=== PATIENT | female | born 1955 | race Caucasian/White ===

== ENCOUNTER → 2018-03-02 | Outpatient (CLI) | payer OTHER ==
--- NOTE | 2018-03-03 09:31 | XR ---
Left shoulder HISTORY: Pain 3 views of the left shoulder No comparisons Bone mineralization, joint spaces and alignment are maintained. Left lung apex as visualized is wallace l. No fracture or dislocation. IMPRESSION: Unremarkable left shoulder.
== END ==
LOC: RADXRYALE 15:38
PROVIDERS: ATTEND Internal Medicine
DX: M25.512 Pain in left shoulder (principal)

== ENCOUNTER 2018-03-07 05:04 | Emergency (ER) | payer OTHER ==
[2018-03-07 05:19] VITALS: TEMP 98
[2018-03-07] MEDS ORDERED: SODIUM CHLORIDE 0.9% 1,000 ML IV STA (05:29)
[2018-03-07] MEDS ORDERED: KETOROLAC 30 MG/ML 1 ML VIAL IVP STA (05:29)
[2018-03-07] MEDS ORDERED: ONDANSETRON 4 MG/2 ML VIAL IVP STA (05:29)
--- NOTE | 2018-03-07 05:31 | ED ---
General Adult HPI - General Chief complaint: Abdominal Pain Stated complaint: Flank Pain Time Seen by Provider: 03/07/18 05:15 Source: patient, RN notes reviewed Mode of arrival: ambulatory Limitations: no limitations - History of Present Illness Initial comments: This is a 62-year-old female who presents emergency Department complaining of left flank pain. Patient states it starts in her back radiates to the flank. Patient states she also very nauseated. Patient denies any abdominal pain. Patient denies any vomiting or diarrhea. Patient denies any history of kidney stones. Patient denies any hematuria or dysuria or urinary frequency. Patient denies any chest pain difficulty breathing shortest breath. Patient denies any recent fever chills or cough. Patient denies any injury trauma or new exercises or any heavy lifting lately. Patient states movement does not seem to increase the pain. - Related Data Previous Rx's Medication Instructions Recorded Hydrocodone/Acetaminophen [[place] 1 each PO Q4HR PRN #14 tab 03/07/18 5-325] Ketorolac [Toradol] 10 mg PO Q6HR #15 tab 03/07/18 Sulfamethox-Tmp 800-160Mg [Bactrim 1 each PO Q12HR #14 tab 03/07/18 DS 800-160 mg] Allergies Allergy/AdvReac Type Severity Reaction Status Date / Time No Known Allergies Allergy Verified 03/07/18 05:19 Review of Systems ROS Statement: Those systems with pertinent positive or pertinent negative responses have been documented in the HPI. ROS Other: All systems not noted in ROS Statement are negative. Past Medical History Past Medical History: Atrial Fibrillation History of Any Multi-Drug Resistant Organisms: None Reported Past Surgical History: Hysterectomy, Tonsillectomy Additional Past Surgical History / Comment(s): carpal tunnel Past Psychological History: No Psychological Hx Reported Smoking Status: Former smoker Past Alcohol Use History: Occasional Past Drug Use History: None Reported General Exam - General Exam Comments Initial Comments: GENERAL: Patient is well-developed and well-nourished. Patient is nontoxic and well- hydrated and is in mild distress. ENT: Neck is soft and supple. No significant lymphadenopathy is noted. Oropharynx is clear. Moist mucous membranes. Neck has full range of motion without eliciting any pain. EYES: The sclera were anicteric and conjunctiva were pink and moist. Extraocular movements were intact and pupils were equal round and reactive to light. Eyelids were unremarkable. PULMONARY: Unlabored respirations. Good breath sounds bilaterally. No audible rales rhonchi or wheezing was noted. CARDIOVASCULAR: There is a regular rate and rhythm without any murmurs gallops or rubs. ABDOMEN: Soft and nontender with normal bowel sounds. No palpable organomegaly was noted. There is no palpable pulsatile mass. SKIN: Skin is clear with no lesions or rashes and otherwise unremarkable. NEUROLOGIC: Patient is alert and oriented x3. Cranial nerves II through XII are grossly intact. Motor and sensory are also intact. Normal speech, volume and content. Symmetrical smile. MUSCULOSKELETAL: Normal extremities with adequate strength and full range of motion. Slight left -sided CVA tenderness LYMPHATICS: No significant lymphadenopathy is noted PSYCHIATRIC: Normal psychiatric evaluation. Normal interpersonal interactions appears functionally intact in deals appropriately with others. No signs of depression. No signs of anxiety. Limitations: no limitations Course Vital Signs 03/07/18 03/07/18 05:15 06:25 Temperature 98 F Pulse Rate 101 H 62 Respiratory 22 20 Rate Blood Pressure 143/69 113/54 O2 Sat by Pulse 98 97 Oximetry Medical Decision Making - Medical Decision Making Patient is a 7 mm ureteral stone on the left with hydronephrosis. I went back to reevaluate the patient and she was pain-free - Lab Data Result diagrams: 03/07/18 05:30 03/07/18 05:30 Lab Results 03/07/18 03/07/18 03/07/18 Range/Units 05:20 05:30 05:30 WBC 12.1 H (3.8-10.6) k/uL RBC 4.56 (3.80-5.40) m/uL Hgb 13.3 (11.4-16.0) gm/dL Hct 39.9 (34.0-46.0) % MCV 87.4 (80.0-100.0) fL MCH 29.2 (25.0-35.0) pg MCHC 33.4 (31.0-37.0) g/dL RDW 13.2 (11.5-15.5) % Plt Count 355 (150-450) k/uL Neutrophils % 66 % Lymphocytes % 27 % Monocytes % 5 % Eosinophils % 1 % Basophils % 0 % Neutrophils # 7.9 H (1.3-7.7) k/uL Lymphocytes # 3.3 (1.0-4.8) k/uL Monocytes # 0.6 (0-1.0) k/uL Eosinophils # 0.1 (0-0.7) k/uL Basophils # 0.0 (0-0.2) k/uL Sodium 140 (137-145) mmol/L Potassium 4.6 (3.5-5.1) mmol/L Chloride 106 (98-107) mmol/L Carbon Dioxide 25 (22-30) mmol/L Anion Gap 9 mmol/L BUN 21 H (7-17) mg/dL Creatinine 0.80 (0.52-1.04) mg/dL Est GFR (CKD-EPI)AfAm >90 (>60 ml/min/1.73 sqM) Est GFR (CKD-EPI)NonAf 81 (>60 ml/min/1.73 sqM) Glucose 148 H (74-99) mg/dL Calcium 9.2 (8.4-10.2) mg/dL Total Bilirubin 0.3 (0.2-1.3) mg/dL AST 21 (14-36) U/L ALT 36 (9-52) U/L Alkaline Phosphatase 61 (38-126) U/L Total Protein 6.5 (6.3-8.2) g/dL Albumin 4.0 (3.5-5.0) g/dL Amylase 40 (30-110) U/L Lipase 72 (23-300) U/L Urine Color Yellow Urine Appearance Cloudy H (Clear) Urine pH 5.5 (5.0-8.0) Ur Specific [place] 1.021 (1.001-1.035) Urine Protein 1+ H (Negative) Urine Glucose (UA) Negative (Negative) Urine Ketones Negative (Negative) Urine Blood Moderate H (Negative) Urine Nitrite Negative (Negative) Urine Bilirubin Negative (Negative) Urine Urobilinogen <2.0 (<2.0) mg/dL Ur Leukocyte Esterase Large H (Negative) Urine RBC 144 H (0-5) /hpf Urine WBC 118 H (0-5) /hpf Ur Squamous Epith Cells 2 (0-4) /hpf Ur Transition Epith Cell 2 H (0-1) /hpf Calcium Oxalate Crystal Few H (None) /hpf Urine Bacteria Few H (None) /hpf Urine Mucus Rare H (None) /hpf Disposition Clinical Impression: Urinary tract infection, Kidney stone Disposition: HOME SELF-CARE Condition: Good Prescriptions: Hydrocodone/Acetaminophen [[place] 5-325] 1 each PO Q4HR PRN #14 tab PRN Reason: Pain Ketorolac [Toradol] 10 mg PO Q6HR #15 tab Sulfamethox-Tmp 800-160Mg [Bactrim DS 800-160 mg] 1 each PO Q12HR #14 tab Is patient prescribed a controlled substance at d/c from ED?: No Referrals: Dottie Sosa MD [Primary Care Provider] - 1-2 days Time of Disposition: 06:41
[2018-03-07 05:48] LABS: Basophils % (A) 0 %; Eosinophils # (A) 0.1 k/uL (0-0.7); Eosinophils % (A) 1 %; HCT 39.9 % (34.0-46.0); HGB 13.3 gm/dL (11.4-16.0); Lymphocytes # (A) 3.3 k/uL (1.0-4.8); Lymphocytes % (A) 27 %; MCH 29.2 pg (25.0-35.0); MCHC 33.4 g/dL (31.0-37.0); MCV 87.4 fL (80.0-100.0); Mean Platelet Volume 6.5; Monocytes # (A) 0.6 k/uL (0-1.0); Monocytes % (A) 5 %; Neutrophils # (A) 7.9 k/uL (1.3-7.7); Neutrophils % (A) 66 %; Platelet Count 355 k/uL (150-450); RBC 4.56 m/uL (3.80-5.40); RDW 13.2 % (11.5-15.5); WBC 12.1 k/uL (3.8-10.6)
[2018-03-07 06:04] LABS: ALT 36 U/L (9-52); AST 21 U/L (14-36); Alkaline Phosphatase 61 U/L (38-126); Amylase 40 U/L (30-110); Anion Gap 9 mmol/L; Blood Urea Nitrogen 21 mg/dL (7-17); Calcium 9.2 mg/dL (8.4-10.2); Carbon Dioxide 25 mmol/L (22-30); Chloride 106 mmol/L (98-107); Glucose 148 mg/dL (74-99); Lipase 72 U/L (23-300); Potassium 4.6 mmol/L (3.5-5.1); Sodium 140 mmol/L (137-145); Total Bilirubin 0.3 mg/dL (0.2-1.3); Total Protein 6.5 g/dL (6.3-8.2)
[2018-03-07 06:13] LABS: Appearance,Urine Cloudy (Clear); Bacteria,Urine Few /hpf; Bilirubin,Urine Negative (Negative); Blood,Urine Moderate (Negative); Calcium Oxalate Crystals,Urine Few /hpf; Color,Urine Yellow; Glucose,Urine (UA) Negative (Negative); Ketones,Urine Negative (Negative); Leukocyte Esterase,Urine Large (Negative); Mucus,Urine Rare /hpf; Nitrite,Urine Negative (Negative); PH, Urine 5.5 (5.0-8.0); Protein,Urine 1+ (Negative); RBC,Urine 144 /hpf (0-5); Specific Gravity,Urine 1.021 (1.001-1.035); Squamous Epithelial Cell,Urine 2 /hpf (0-4); Transitional Epi Cells,Urine 2 /hpf (0-1); Urobilinogen,Urine <2.0 mg/dL (<2.0); WBC,Urine 118 /hpf (0-5)
[2018-03-07] MEDS ORDERED: cefTRIAXone IN SWFI 1,000 MG/10 ML SYRINGE IVP STA (06:15)
[2018-03-07 06:26] VITALS: BP 113/54; PULSE 62; RESP 20
--- NOTE | 2018-03-07 06:28 | CT ---
EXAMINATION TYPE: CT abdomen pelvis wo con DATE OF EXAM: 03/07/2018 COMPARISON: 12/19/2011 HISTORY: left flank pain, r/o stones. CT DLP: 547.30 mGycm Automated exposure control for dose reduction was used. TECHNIQUE: Helical acquisition of images was performed from the lung bases through the pelvis. FINDINGS: Lung bases are clear of consolidation. There is no pleural effusion. There is no pericardial effusion . Liver spleen pancreas gallbladder appear normal. Bile ducts are not dilated. There is no adrenal mass . There is 6 mm calculus in the interpolar right kidney. There is 3 mm calculus lateral left kidney. There is left-sided hydronephrosis with a 7 mm calculus at the left ureteropelvic junction. There is no retroperitoneal adenopathy. Appendix appears normal. There is no intestinal wall thickening. There are no dilated loops. There ar e multiple sigmoid diverticula. There is no evidence of diverticulitis. There is no ascites. There is no sign of free air. Bladder is almost empty. I see no bony destructive process. IMPRESSION: LEFT-SIDED HYDRONEPHROSIS WITH OBSTRUCTING CALCULUS AT THE LEFT URETEROPELVIC JUNCTION. THIS IS NEW C OMPARED TO OLD EXAM. BILATERAL RENAL CALCULI.
--- NOTE | 2018-03-07 06:30 | XR ---
EXAMINATION TYPE: XR KUB DATE OF EXAM: 03/07/2018 COMPARISON: NONE HISTORY: Left flank pain TECHNIQUE: 2 views FINDINGS: There is no sign of intestinal obstruction or pneumoperitoneum. Fecal pattern is normal. Th ere is no evidence of a mass. Lung bases are clear. IMPRESSION: Nonacute abdomen.
== END 2018-03-07 07:25 | disposition home or self-care (01) ==
LOC: EC 05:04
DX: N13.6 Pyonephrosis (principal); Z87.891 Personal history of nicotine dependence; Z90.710 Acquired absence of both cervix and uterus
CPT/HCPCS: 36415; 80053; 82150; 83690; 85025; 81001; 87086; 74018; 74176; 99284; 96374; 96375 ×2; 96361 ×2; J2405; J0696; J1885; 87077; 87186

== ENCOUNTER → 2018-05-11 | Outpatient (CLI) | payer OTHER ==
[2018-05-11 11:05] LABS: HCT 40.9 % (34.0-46.0); HGB 13.4 gm/dL (11.4-16.0); MCH 28.6 pg (25.0-35.0); MCHC 32.8 g/dL (31.0-37.0); Mean Platelet Volume 6.2; Platelet Count 374 k/uL (150-450); RBC 4.71 m/uL (3.80-5.40); RDW 13.5 % (11.5-15.5); WBC 7.6 k/uL (3.8-10.6)
[2018-05-11 12:28] LABS: Erythrocyte Sedimentation Rate 15 mm/hr (0-20)
[2018-05-11 18:35] LABS: Rheumatoid Factor 8 IU/mL (0-15); Streptolysin O Ab(ASO) 173 IU/mL (0-200)
[2018-05-12 11:12] LABS: HLA B27 NEGATIVE
[2018-05-12 12:05] LABS: ANA Pattern Speckled
== END | disposition home or self-care (01) ==
LOC: LABWHC1 10:41
PROVIDERS: ATTEND Orthopaedic Surgery
DX: M25.561 Pain in right knee (principal); M17.11 Unilateral primary osteoarthritis, right knee
CPT/HCPCS: 36415; 84443; 85027; 85652; 86038; 86039; 86060; 86140; 86431; 86618; 86812

== ENCOUNTER 2018-09-27 14:42 | Emergency (ER) | payer OTHER ==
[2018-09-27 15:49] VITALS: RESP 16; TEMP 98.7
[2018-09-27] MEDS ORDERED: KETOROLAC 30 MG/ML 1 ML VIAL IM STA (15:52)
[2018-09-27 16:23] LABS: Appearance,Urine Cloudy (Clear); Bacteria,Urine Rare /hpf; Bilirubin,Urine Negative (Negative); Blood,Urine Moderate (Negative); Color,Urine Yellow; Glucose,Urine (UA) Negative (Negative); Ketones,Urine 1+ (Negative); Leukocyte Esterase,Urine Negative (Negative); Mucus,Urine Few /hpf; Nitrite,Urine Negative (Negative); PH, Urine 5.5 (5.0-8.0); Protein,Urine Trace (Negative); RBC,Urine 103 /hpf (0-5); Specific Gravity,Urine 1.024 (1.001-1.035); Squamous Epithelial Cell,Urine 5 /hpf (0-4); WBC,Urine 7 /hpf (0-5)
[2018-09-27 16:36] LABS: Basophils # (A) 0.1 k/uL (0-0.2); Basophils % (A) 1 %; Eosinophils # (A) 0.3 k/uL (0-0.7); Eosinophils % (A) 3 %; HCT 41.7 % (34.0-46.0); HGB 13.9 gm/dL (11.4-16.0); Lymphocytes # (A) 1.7 k/uL (1.0-4.8); Lymphocytes % (A) 19 %; MCH 28.9 pg (25.0-35.0); MCHC 33.4 g/dL (31.0-37.0); MCV 86.8 fL (80.0-100.0); Mean Platelet Volume 6.2; Monocytes # (A) 0.4 k/uL (0-1.0); Monocytes % (A) 4 %; Neutrophils # (A) 6.4 k/uL (1.3-7.7); Neutrophils % (A) 71 %; Platelet Count 341 k/uL (150-450)
[2018-09-27 16:43] LABS: Albumin 4.2 g/dL (3.5-5.0); Calcium 9.4 mg/dL (8.4-10.2); Potassium 4.4 mmol/L (3.5-5.1); Total Bilirubin 0.5 mg/dL (0.2-1.3); Total Protein 6.9 g/dL (6.3-8.2)
--- NOTE | 2018-09-27 17:40 | XR ---
EXAMINATION TYPE: XR KUB DATE OF EXAM: 09/27/2018 5:34 PM CLINICAL HISTORY: Left-sided flank pain. History of kidney stones. TECHNIQUE: Two Upright KUB images of the abdomen are obtained. COMPARISON: Abdominal x-ray and CT March 07, 2018. FINDINGS: Scattered gas is seen in non-distended stomach and small bowel loops. Gas and fecal materia l is seen in non-distended colon. There is no visceromegaly, pneumoperitoneum, or abnormal calcificat ion appreciated. The lung bases are clear and the osseous structures are intact. IMPRESSION: Overall nonobstructive bowel gas pattern. Renal calculi seen on CT are less well seen on plain films.
--- NOTE | 2018-09-27 18:49 | ED ---
General Adult HPI - General Chief complaint: Abdominal Pain Stated complaint: Poss kidney stones Time Seen by Provider: 09/27/18 18:25 Source: patient, RN notes reviewed, old records reviewed Mode of arrival: ambulatory Limitations: no limitations - History of Present Illness Initial comments: 63-year-old female presenting with left flank pain. Patient has history of previous kidney stones, last stone was about 6 months ago. She states over the past several days she's had some dysuria and low-grade fever. Today she had sudden onset left flank pain which was severe in nature. Denies nausea or vomiting. Denies diarrhea. She had some pain radiating to the left groin as well. No change in bowels. Patient is asymptomatic at the time my evaluation. She previously followed with urology for kidney stones. - Related Data Previous Rx's Medication Instructions Recorded Hydrocodone/Acetaminophen [[place] 1 each PO Q4HR PRN #14 tab 03/07/18 5-325] Ketorolac [Toradol] 10 mg PO Q6HR #15 tab 03/07/18 Sulfamethox-Tmp 800-160Mg [Bactrim 1 each PO Q12HR #14 tab 03/07/18 DS 800-160 mg] Cephalexin [Keflex] 500 mg PO Q8HR #30 cap 09/27/18 HYDROcodone/APAP 5-325MG [[place] 1 tab PO Q6HR PRN #12 tab 09/27/18 5-325] Ibuprofen [Motrin] 600 mg PO Q8HR PRN #24 tab 09/27/18 Tamsulosin [Flomax] 0.4 mg PO DAILY #30 cap 09/27/18 Allergies Allergy/AdvReac Type Severity Reaction Status Date / Time No Known Allergies Allergy Verified 09/27/18 15:49 Review of Systems ROS Statement: Those systems with pertinent positive or pertinent negative responses have been documented in the HPI. ROS Other: All systems not noted in ROS Statement are negative. Past Medical History Past Medical History: Atrial Fibrillation History of Any Multi-Drug Resistant Organisms: None Reported Past Surgical History: Hysterectomy, Tonsillectomy Additional Past Surgical History / Comment(s): carpal tunnel Past Psychological History: No Psychological Hx Reported Smoking Status: Former smoker Past Alcohol Use History: Occasional Past Drug Use History: None Reported General Exam Limitations: no limitations General appearance: alert, in no apparent distress Head exam: Present: atraumatic, normocephalic Eye exam: Present: normal appearance, PERRL ENT exam: Present: normal exam Neck exam: Present: normal inspection. Absent: tenderness, meningismus Respiratory exam: Present: normal lung sounds bilaterally. Absent: respiratory distress, wheezes Cardiovascular Exam: Present: regular rate, normal rhythm GI/Abdominal exam: Present: soft. Absent: distended, tenderness, guarding Extremities exam: Present: normal inspection, full ROM, normal capillary refill. Absent: pedal edema Back exam: Present: normal inspection. Absent: CVA tenderness (R), CVA tenderness (L) Neurological exam: Present: alert, oriented X3, CN II-XII intact. Absent: motor sensory deficit Psychiatric exam: Present: normal affect, normal mood Skin exam: Present: warm, dry, intact. Absent: cyanosis, diaphoretic Course Vital Signs 09/27/18 15:48 Temperature 98.7 F Pulse Rate 75 Respiratory 16 Rate Blood Pressure 163/98 O2 Sat by Pulse 97 Oximetry - Reevaluation(s) Reevaluation #1: 09/27/18 18:49 Patient is asymptomatic Medical Decision Making - Medical Decision Making 63-year-old female presenting with flank pain, concerning for renal colic. Pain resolved at the time my evaluation after 30 mg of Toradol. Laboratory studies reveal normal CBC, normal CMP urinalysis shows 100 red cells, 7 white cells, rare bacteria. Culture will be obtained as patient have reported subjective fever and chills. X-ray negative for any acute findings. CT in February of this year showed bilateral stones with left-sided hydronephrosis. We did discuss possibility of CT today, as she is pain-free at this time we decided to withhold CT scanning, she will follow-up with urology. She will be prescribed pain medication, Flomax, and antibiotics awaiting culture results. She will return with worsening or changing symptoms. - Lab Data Result diagrams: 09/27/18 16:21 09/27/18 16:21 Lab Results 09/27/18 09/27/18 09/27/18 Range/Units 15:53 16:21 16:21 WBC 9.0 (3.8-10.6) k/uL RBC 4.80 (3.80-5.40) m/uL Hgb 13.9 (11.4-16.0) gm/dL Hct 41.7 (34.0-46.0) % MCV 86.8 (80.0-100.0) fL MCH 28.9 (25.0-35.0) pg MCHC 33.4 (31.0-37.0) g/dL RDW 13.0 (11.5-15.5) % Plt Count 341 (150-450) k/uL Neutrophils % 71 % Lymphocytes % 19 % Monocytes % 4 % Eosinophils % 3 % Basophils % 1 % Neutrophils # 6.4 (1.3-7.7) k/uL Lymphocytes # 1.7 (1.0-4.8) k/uL Monocytes # 0.4 (0-1.0) k/uL Eosinophils # 0.3 (0-0.7) k/uL Basophils # 0.1 (0-0.2) k/uL Sodium 142 (137-145) mmol/L Potassium 4.4 (3.5-5.1) mmol/L Chloride 106 (98-107) mmol/L Carbon Dioxide 25 (22-30) mmol/L Anion Gap 11 mmol/L BUN 15 (7-17) mg/dL Creatinine 0.89 (0.52-1.04) mg/dL Est GFR (CKD-EPI)AfAm 81 (>60 ml/min/1.73 sqM) Est GFR (CKD-EPI)NonAf 70 (>60 ml/min/1.73 sqM) Glucose 123 H (74-99) mg/dL Calcium 9.4 (8.4-10.2) mg/dL Total Bilirubin 0.5 (0.2-1.3) mg/dL AST 40 H (14-36) U/L ALT 52 (9-52) U/L Alkaline Phosphatase 80 (38-126) U/L Total Protein 6.9 (6.3-8.2) g/dL Albumin 4.2 (3.5-5.0) g/dL Amylase 37 (30-110) U/L Lipase 118 (23-300) U/L Urine Color Yellow Urine Appearance Cloudy H (Clear) Urine pH 5.5 (5.0-8.0) Ur Specific [place] 1.024 (1.001-1.035) Urine Protein Trace H (Negative) Urine Glucose (UA) Negative (Negative) Urine Ketones 1+ H (Negative) Urine Blood Moderate H (Negative) Urine Nitrite Negative (Negative) Urine Bilirubin Negative (Negative) Urine Urobilinogen 2.0 (<2.0) mg/dL Ur Leukocyte Esterase Negative (Negative) Urine RBC 103 H (0-5) /hpf Urine WBC 7 H (0-5) /hpf Ur Squamous Epith Cells 5 H (0-4) /hpf Urine Bacteria Rare H (None) /hpf Urine Mucus Few H (None) /hpf Disposition Clinical Impression: Calculus of kidney Disposition: HOME SELF-CARE Condition: Good Instructions: Kidney Stones (ED), Renal Colic (ED) Prescriptions: Cephalexin [Keflex] 500 mg PO Q8HR #30 cap HYDROcodone/APAP 5-325MG [[place] 5-325] 1 tab PO Q6HR PRN #12 tab PRN Reason: Pain Ibuprofen [Motrin] 600 mg PO Q8HR PRN #24 tab PRN Reason: Pain Tamsulosin [Flomax] 0.4 mg PO DAILY #30 cap Is patient prescribed a controlled substance at d/c from ED?: No Referrals: Dottie Sosa MD [Primary Care Provider] - 1-2 days James Yeung MD [STAFF PHYSICIAN] - 1-2 days Time of Disposition: 18:49
[2018-09-27 19:27] VITALS: BP 138/72; PULSE 88
== END 2018-09-27 19:15 | disposition home or self-care (01) ==
LOC: EC 14:42
DX: N20.0 Calculus of kidney (principal); R50.9 Fever, unspecified; Z87.891 Personal history of nicotine dependence
CPT/HCPCS: 36415; 80053; 82150; 83690; 85025; 81001; 87086; 74018; 99284; 96372; J1885

== ENCOUNTER 2021-02-02 14:04 | Emergency (ER) | payer OTHER ==
[2021-02-02 14:16] VITALS: BP 128/87; PULSE 81; RESP 20; TEMP 97.8
[2021-02-02] MEDS ORDERED: KETOROLAC 15 MG/ML 1 ML VIAL IM STA (15:00)
--- NOTE | 2021-02-02 16:05 | XR ---
EXAMINATION TYPE: XR knee complete LT DATE OF EXAM: 02/02/2021 COMPARISON: NONE HISTORY: Knee pain TECHNIQUE: 3 views FINDINGS: There is some narrowing of the medial joint space with spurring of the medial femoral and t ibial condyles. I see no fracture nor dislocation. There is no sign of joint effusion. 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 No fracture.
--- NOTE | 2021-02-02 16:05 | ED ---
Extremity Problem HPI - General Chief complaint: Extremity Problem,Nontraumatic Stated complaint: L Leg Pain Time Seen by Provider: 02/02/21 14:35 Source: patient Mode of arrival: ambulatory Limitations: no limitations - History of Present Illness Initial comments: 65 year-old female patient presents with complaints of left knee pain. States it started after she did some workouts on . States the pain is intermittent and occasionally radiates to the left hip. Does report some swelling. No redness, fever, or chills. Denies any previous injury to the knee. Does have history of arthritis. She is able to ambulate, bear weight, and has full flexion and extension. Patient denies any recent rash, cough, shortness of breath, chest pain, abdominal pain, nausea, vomiting, diarrhea, constipation, back pain, numbness, tingling, dizziness, weakness, hematuria, dysuria, urinary urgency, urinary frequency, headache, visual changes, or any other complaints. - Related Data Previous Rx's Medication Instructions Recorded Hydrocodone/Acetaminophen [[place] 1 each PO Q4HR PRN #14 tab 03/07/18 5-325] Ketorolac [Toradol] 10 mg PO Q6HR #15 tab 03/07/18 Sulfamethox-Tmp 800-160Mg [Bactrim 1 each PO Q12HR #14 tab 03/07/18 DS 800-160 mg] Cephalexin [Keflex] 500 mg PO Q8HR #30 cap 09/27/18 HYDROcodone/APAP 5-325MG [[place] 1 tab PO Q6HR PRN #12 tab 09/27/18 5-325] Ibuprofen [Motrin] 600 mg PO Q8HR PRN #24 tab 09/27/18 Tamsulosin [Flomax] 0.4 mg PO DAILY #30 cap 09/27/18 Allergies Allergy/AdvReac Type Severity Reaction Status Date / Time No Known Allergies Allergy Verified 02/02/21 14:16 Review of Systems ROS Statement: Those systems with pertinent positive or pertinent negative responses have been documented in the HPI. ROS Other: All systems not noted in ROS Statement are negative. Past Medical History Past Medical History: Atrial Fibrillation, Diabetes Mellitus, Osteoarthritis (OA) History of Any Multi-Drug Resistant Organisms: None Reported Past Surgical History: Hysterectomy, Tonsillectomy Additional Past Surgical History / Comment(s): carpal tunnel Past Psychological History: No Psychological Hx Reported Smoking Status: Never smoker Past Alcohol Use History: Occasional Past Drug Use History: None Reported General Exam Limitations: no limitations General appearance: alert, in no apparent distress, other (This is a well developed, well nourished adult female patient in no acute distress. Vital signs are Temp 97.8, pulse 81, resp 20, BP 128/87, Pulse ox 99%) Respiratory exam: Present: normal lung sounds bilaterally. Absent: respiratory distress, wheezes, rales, rhonchi, stridor Cardiovascular Exam: Present: regular rate, normal rhythm, normal heart sounds. Absent: systolic murmur, diastolic murmur, rubs, gallop, clicks Extremities exam: Present: normal inspection, full ROM, tenderness (left medial knee), normal capillary refill, other (Skin to the left leg is pink, warm and dry. No increased pain or laxity noted with valgus, varus, anterior/posterior drawer maneuvers. Pedal and post tibial pulses are intact.). Absent: pedal edema, joint swelling, calf tenderness Neurological exam: Present: alert, oriented X3, CN II-XII intact Psychiatric exam: Present: normal affect, normal mood Skin exam: Present: warm, dry, intact, normal color. Absent: rash Course Vital Signs 02/02/21 14:13 Temperature 97.8 F Pulse Rate 81 Respiratory 20 Rate Blood Pressure 128/87 O2 Sat by Pulse 99 Oximetry Medical Decision Making - Medical Decision Making 65-year-old female patient presented to the emergency department today for evaluation of left knee pain. Patient states this started couple days ago after working out. Physical examination was unremarkable. Neurovascular status was intact. No pain with [place] or varus maneuvers. X-rays were obtained and were negative. She is given pain medication. She be discharged follow up with her primary care physician orthopedics for further evaluation as soon as possible. She verbalizes understanding and agrees with this plan. My attending is Dr. Wolff. - Radiology Data Radiology results: report reviewed, image reviewed 3 views of the left knee are obtained. Report reviewed in its entirety. Impression by Dr. Suh shows moderate osteoarthritis in the medial joint space. No fracture. Disposition Clinical Impression: Strain of left knee Disposition: HOME SELF-CARE Condition: Good Instructions (If sedation given, give patient instructions): Knee Pain (ED) Additional Instructions: Rest, ice, elevate the knee. Use medicine sparingly as needed for severe pain. Follow up with the primary care physician for recheck in 1-2 days. Return for any new, worsening, or concerning symptoms. Is patient prescribed a controlled substance at d/c from ED?: No Referrals: Dottie Sosa MD [Primary Care Provider] - 1-2 days Time of Disposition: 16:18
[2021-02-02] MEDS ORDERED: ACET/COD 300 MG/30 MG STARTER PACK 6 TAB BTL PO STA (16:17)
== END 2021-02-02 16:29 | disposition home or self-care (01) ==
LOC: EC 14:04
DX: S86.912A Strain of unspecified muscle(s) and tendon(s) at lower leg level, left leg, initial encounter (principal); I48.91 Unspecified atrial fibrillation; E11.9 Type 2 diabetes mellitus without complications; M19.90 Unspecified osteoarthritis, unspecified site; X58.XXXA Exposure to other specified factors, initial encounter; Y93.B9 Activity, other involving muscle strengthening exercises
CPT/HCPCS: 73562; 99283; 96372; J1885

== ENCOUNTER → 2022-01-08 | Outpatient (CLI) | payer OTHER ==
[2022-01-08 16:00] LABS: Partial Thromboplastin Time 27.7 sec (22.0-30.0); Prothrombin Time 11.1 sec (9.0-12.0)
[2022-01-08 23:32] LABS: HCT 43.1 % (37.2-46.3); HGB 13.7 g/dL (12.0-15.0); MCHC 31.8 g/dL (32.0-37.0); MCV 88.1 fL (80.0-97.0); NRBC Per 100 WBC 0 /100 WBCS (0.0-0.0); Platelet Count 375 X 10*3/uL (140-440); RBC 4.89 X 10*6/uL (4.10-5.20); RDW 14.5 % (11.5-14.5); WBC 7.39 X 10*3/uL (4.50-10.00)
[2022-01-09 00:14] LABS: African American GFR (CKD) 90.3 (60.0-200.0); Albumin 4.4 g/dL (3.8-4.9); Albumin/Globulin Ratio 1.57 (1.60-3.17); Anion Gap 12.4 mmol/L (10.00-18.00); BUN/Creat Ratio 22.63 Ratio (12.00-20.00); Blood Urea Nitrogen 18.1 mg/dL (9.0-27.0); Calcium 10.3 mg/dL (8.7-10.3); Carbon Dioxide 25.6 mmol/L (20.0-27.5); Globulin 2.8 g/dL (1.6-3.3); Non-African American GFR(CKD) 77.9 (60.0-200.0); Potassium 4.6 mmol/L (3.5-5.5); Total Bilirubin 0.3 mg/dL (0.30-1.20); Total Protein 7.2 g/dL (6.2-8.2)
[2022-01-09 01:52] LABS: Appearance,Urine Clear (Clear); Bilirubin,Urine Negative (Negative); Blood,Urine Negative (Negative); Color,Urine Yellow (Yellow); Ketones,Urine Negative (Negative); Nitrite,Urine Negative (Negative); Specific Gravity,Urine 1.006 (1.001-1.030); Urobilinogen,Urine 0.2 (0.2,1.0)
== END | disposition home or self-care (01) ==
LOC: LABPAT 13:41
PROVIDERS: ATTEND Orthopaedic Surgery
DX: Z01.812 Encounter for preprocedural laboratory examination (principal); M17.12 Unilateral primary osteoarthritis, left knee
CPT/HCPCS: 80053; 81003; 85027; 85610; 85730; 93005

== ENCOUNTER → 2022-01-17 | Outpatient (CLI) | payer OTHER, BC | END | disposition home or self-care (01) | LOC: LABPAT 09:27 | PROVIDERS: ATTEND Orthopaedic Surgery | DX: Z01.812 Encounter for preprocedural laboratory examination (principal) | CPT/HCPCS: 87070 ==

== ENCOUNTER 2022-01-21 05:31 | Day surgery (SDC) | payer OTHER, BC ==
[2022-01-17 09:00] VITALS: BMI 27.6
[~2022-01-21 05:31] MED LIST: ACETAMINOPHEN TAB 500 MG TAB PO PRN; GABAPENTIN 300 MG CAP PO PRN; MELOXICAM 7.5 MG TAB PO PRN; TRANEXAMIC ACID IN NACL,ISO-OS 1,000 MG in SALINE 1 100ML.BAG IVPB PRN
[2022-01-21] MEDS ORDERED: LACTATED RINGERS 1,000 ML IV SCH (05:42)
[2022-01-21] MEDS ORDERED: LIDOCAINE 1% (10MG/ML) FOR IV START INTRADERMA PRN (05:42)
[2022-01-21] MEDS ORDERED: DEXAMETHASONE SOD PHOSPHATE 4 MG/ML 1 ML VIAL IV ONE (05:42)
[2022-01-21 06:18] LABS: Glucose,Whole Blood 96 mg/dL (75-99)
[2022-01-21] MEDS ORDERED: MIDAZOLAM 2 MG/2 ML VIAL IVP ONE (06:43)
[2022-01-21] MEDS ORDERED: fentaNYL (PF) 50 MCG/ML 2 ML AMP IVP ONE (06:43)
[2022-01-21] MEDS ORDERED: NEOSTIGMINE 1 MG/ML 10 ML VIAL ONE (06:59)
[2022-01-21] MEDS ORDERED: MIDAZOLAM 2 MG/2 ML VIAL ONE (06:59)
[2022-01-21] MEDS ORDERED: PROPOFOL 10 MG/ML 20 ML VIAL IV ONE (06:59)
[2022-01-21] MEDS ORDERED: LIDOCAINE 2% INJ 20 MG/ML (2 ML VIAL) ONE (06:59)
[2022-01-21] MEDS ORDERED: SODIUM CHLORIDE 0.9% (PF) 10 ML VIAL ONE (06:59)
[2022-01-21] MEDS ORDERED: ROPIVACAINE 5 MG/ML 30 ML VIAL ONE (06:59)
[2022-01-21] MEDS ORDERED: SUCCINYLCHOLINE CHLORIDE 100 MG/5 ML SYR IV ONE (06:59)
[2022-01-21] MEDS ORDERED: fentaNYL (PF) 50 MCG/ML 2 ML AMP ONE (06:59)
[2022-01-21] MEDS ORDERED: ROCURONIUM 10 MG/ML (5 ML VIAL) IV ONE (06:59)
[2022-01-21] MEDS ORDERED: GLYCOPYRROLATE 0.2 MG/ML 2 ML VIAL ONE (06:59)
[2022-01-21] MEDS ORDERED: HYDROmorphone 0.5 MG/0.5 ML SYRINGE IVP PRN ×2 (07:00)
[2022-01-21] MEDS ORDERED: NALOXONE 0.4 MG/ML 1 ML VIAL IV PRN (07:00)
[2022-01-21] MEDS ORDERED: HYDROmorphone 1 MG/ML 1 ML SYRINGE IVP PRN (07:00)
[2022-01-21] MEDS ORDERED: ONDANSETRON 4 MG/2 ML VIAL IVP PRN ×2 (07:00)
[2022-01-21] MEDS ORDERED: SODIUM CHLORIDE 0.9% 1,000 ML IV SCH (07:00)
[2022-01-21] MEDS ORDERED: HYDROcodone/APAP 7.5-325MG 1 EACH TAB PO PRN ×2 (07:02)
[2022-01-21] MEDS ORDERED: ceFAZolin 1,000 MG in SODIUM CHLORIDE 0.9% 1,000 ML IRRIGATION ONE (07:28)
[2022-01-21] MEDS ORDERED: LACTATED RINGERS 1,000 ML IV ONE (07:42)
--- NOTE | 2022-01-21 08:36 | P.OP ---
Date of Procedure: 01/21/22 Preoperative Diagnosis: Severe osteoarthritis left knee Postoperative Diagnosis: Severe osteoarthritis left knee Procedure(s) Performed: Left total knee arthroplasty utilizing Beestaraire patient specific guides Implants: Montiel and Nephew Cruciate Retaining Journey II CR Oxinium Femoral Component size 5, left Montiel & Nephew Journey Nonporous Tibial Baseplate size 3, left Montiel & Nephew Journey II CR, XLPE Articular Insert, 10 mm, size 3-4 Montiel & Nephew Hanna II Resurfacing Patellar Component, Oval, 29 mm All components were cemented using Palacose R bone cement. The articulation is Oxinium on polyethylene. Visionaire patient specific guides Anesthesia: GETA Surgeon: Alphonse Vazquez Fitness Studies Teacher #1: Claudette Case Estimated Blood Loss (ml): 25 Pathology: other (Bone and cartilage) Condition: stable Disposition: PACU Indications for Procedure: After failure of conservative treatment we discussed the surgical and nonsurgical treatment options at length. Patient wishes to proceed with a total knee arthroplasty. Complications specific to this procedure were discussed at length, including but not limited to infection, bleeding, stiffness, and nerve injury. Covid-19 was also discussed at length with the patient, and they are aware of the current policies and procedures. The patient was given the option of delaying surgery, but they elect to proceed knowing these risks. Patient is aware of all these complications and informed consent was obtained Operative Findings: The operative findings are consistent with severe osteoarthritis of the left knee Description of Procedure: Patient was seen in the preoperative area and the consent was reviewed and the operative site was marked with a skin marker. The patient verified the procedure and the operative site. An adductor canal pain catheter was placed by anesthesia in the preoperative area. The patient was then brought to the operating room and given preoperative antibiotics intravenously. A gram of transexamic acid was given intravenously. A general anesthetic was administered by the anesthesia department. A tourniquet was placed on the upper thigh and the lower extremity was prepped with chlorhexidine and draped in usual sterile fashion. A universal timeout was then performed which confirmed the patient's name, surgical site, ALLERGIES, and consent. The lower extremity was then exsanguinated and tourniquet was inflated to 250 mmHg. A standard anterior midline approach to the knee was performed. The skin and subcutaneous tissue were sharply dissected down to the patellar tendon. A medial parapatellar arthrotomy was then performed. The knee was then extended, the patellar was everted, and the knee was again flexed. The infra-patellar fat pad was removed in order to enhance exposure. The anterior horns of both menisci were excised, and a release was performed to the posterior medial aspect of the knee. On gross visual inspection, there was complete loss of articular cartilage in the medial and patellofemoral joint spaces. There was also significant cartilage damage in the lateral compartment. There were multiple periarticular osteophytes globally about the knee. The patient specific guide was placed on the distal femur, and pinned in place. Using the patient specific guide, the distal femoral cut was performed. The cutting block was then removed and the cut was checked for symmetry. The spikes of the femoral block was then placed into the predrilled holes, and malleted into place. Two 45 mm pins were then placed into the fixation holes on the cutting block. An kale wing was then used to ensure there would be no notching with the anterior cut. The anterior condyles were cut without notching. The anterior chord cut was then performed, followed by the posterior cut, posterior chamfer cut, and the anterior chamfer cut. The collateral ligaments were protected during the entire process. The cutting block was then removed. Any remaining bone and osteophytes were removed from the femur with a Ronguer. The femoral canal was plugged with autologous bone. Attention was then directed to the tibia. The remaining ACL was removed with a Ronguer, and the tibia was then gently subluxed forward with a large bent knee retractor. Any remaining menisci were excised. The posterior lateral corner was cauterized in order to coagulate the lateral geniculate artery. The patient specific guide for the tibia was then placed and was held in place with pins. Pinholes were then placed for rotation of the tibial component as well. Proximal tibia was then cut and sized. The femoral trial was placed. A narrow saw blade was then used to remove the anterior intracondylar femoral bone. The CR notch trial was then placed. The tibial trial was placed with the appropriate-sized insert. The knee was able to fully extend and flex to 130 and was stable throughout all range of motion. The knee was then extended and the patella was everted. Patella was then measured, and then using an osteotomy guide, the patella was cut at the appropriate level. The patella was then measured and drilled and the patella trial was then placed. The knee was then taken through range of motion with the patella trial and the patella tracked normally using the no thumbs technique.. The knee was then extended patella trial was then removed and the patella was everted. Knee was then flexed and lug holes were drilled through the femoral trial and the femoral trial was then removed. The tibial was then re-exposed, and the tibial broach guide was then pinned in place after it was set for the appropriate rotation to allow for the most coverage without overhang. The tibia was then reamed and broached. The cut surfaces of bone were then irrigated with pulsatile lavage. The posterior structures were injected with the ropivacaine solution. The knee was also irrigated with Irrisept solution. The components were then opened, the cement was mixed, and the components were then cemented in place. The cement was allowed to harden with the knee in full extension. While the cement was hardening, the remaining soft tissues were then injected with a ropivacaine solution, which consisted of 246.25 mg of ropivacaine, 0.5 mg of epinephrine, 30 mg of Toradol, 80 g of clonidine, and 48.45 mL of sterile water, for a total of 100 mL of fluid injected. After the cemented hardened. The tourniquet was released, and hemostasis was obtained. A second gram of transexamic acid was given intravenously. The knee was again irrigated. The knee was again taken through range of motion and found to be stable throughout all range of motion of 0-130, and the patella tracked normally. The fascia was then closed with 0 Vicryl followed by #2 strata fix suture. The subcutaneous tissue was closed with 3-0 Vicryl and 3-0 strata fix. Exofin glue was used for the skin and placed with the knee in flexion. After the glue had dried, and Optafoam silver impregnated dressing was applied. The patient was then transferred to recovery room in stable condition. The assistant professor of archaeology JEFF Ntah was required due the complexity surgery and the need for a skilled surgical device sales representative. She assisted in positioning, draping, retraction, and closure of the wound.
[2022-01-21 08:41] VITALS: TEMP 97
[2022-01-21] MEDS: HYDROmorphone 0.5 MG/0.5 ML SYRINGE IVP PRN ×3 (09:00→09:25)
[2022-01-21] MEDS ORDERED: ROPIVACAINE 0.2%-NS ON-Q PUMP 1,090 MG, EMPTY PAIN BALL 1 EACH MISCELLANE PRN ×2 (09:02→09:45)
--- NOTE | 2022-01-21 09:07 | XR ---
EXAMINATION TYPE: XR knee limited LT DATE OF EXAM: 01/21/2022 CLINICAL HISTORY: Left knee pain and arthritis status post total knee replacement. TECHNIQUE: Portable AP and crosstable lateral views of the left knee are obtained immediately postop eratively. COMPARISON: Left knee x-ray February 02, 2021 FINDINGS: Metallic hardware from total left knee arthroplasty is seen and appears satisfactory in al ignment and position. There is evidence of recent surgery with diffuse subcutaneous gas and soft tis [place] swelling noted. IMPRESSION: METALLIC HARDWARE FROM TOTAL LEFT KNEE ARTHROPLASTY IS SATISFACTORY IN ALIGNMENT.
--- NOTE | 2022-01-21 09:46 | P.ANPRN ---
Procedure Note - Anesthesia - Nerve Block Performed Left Adductor Canal Time Out Performed: Yes (06:42) Date of Procedure: 01/21/22 Procedure Start Time: : Procedure Stop Time: :53 Location of Patient: PreOp Indication: Acute Post-Operative Pain, Requested by Surgeon (Dr Alphonse Vazquez) Sedation Type: Sedate with meaningful contact maintained Preparation: Sterile Prep, Sterile Dressing Position: Supine Catheter: Indwelling Needle Types: Pajunk Needle Gauge: 21 Ultrasound used to visualize needle placement: Yes Ultrasound used to observe medication spread: Yes Injectate: 0.5% Ropivacaine (see comment for volume) (15cc) Blood Aspirated: No Pain Paresthesia on Injection Noted: No Resistance on Injection: Normal Image Stored and Saved: Yes Events: Uneventful and Well Tolerated
--- NOTE | 2022-01-21 09:48 | P.ANPRN ---
Procedure Note - Anesthesia - Nerve Block Performed Left iPack Time Out Performed: Yes Date of Procedure: 01/21/22 Procedure Start Time: 06:54 Procedure Stop Time: 07:01 Location of Patient: PreOp Indication: Acute Post-Operative Pain, Requested by Surgeon (Dr Alphonse Vazquez) Sedation Type: Sedate with meaningful contact maintained Preparation: Sterile Prep Position: Supine Catheter: None Needle Types: Pajunk Needle Gauge: 21 Ultrasound used to visualize needle placement: Yes Ultrasound used to observe medication spread: Yes Injectate: 0.5% Ropivacaine (see comment for volume) (15cc + 5cc PF Normal saline) Blood Aspirated: No Pain Paresthesia on Injection Noted: No Resistance on Injection: Normal Image Stored and Saved: Yes Events: Uneventful and Well Tolerated
[2022-01-21 14:20] VITALS: BP 105/61; PULSE 67; RESP 17
== END 2022-01-21 14:49 | disposition home health service (06) ==
LOC: OR 05:31
PROVIDERS: ATTEND Orthopaedic Surgery
DX: M17.12 Unilateral primary osteoarthritis, left knee (principal); M25.762 Osteophyte, left knee; R00.2 Palpitations; E03.9 Hypothyroidism, unspecified; Z97.3 Presence of spectacles and contact lenses; Z90.710 Acquired absence of both cervix and uterus; Z98.890 Other specified postprocedural states; Z83.3 Family history of diabetes mellitus; Z82.49 Family history of ischemic heart disease and other diseases of the circulatory system; N28.9 Disorder of kidney and ureter, unspecified; R73.03 Prediabetes; I48.0 Paroxysmal atrial fibrillation; Z79.01 Long term (current) use of anticoagulants; Z79.890 Hormone replacement therapy; Z79.899 Other long term (current) drug therapy; Z88.8 Allergy status to other drugs, medicaments and biological substances
CPT/HCPCS: 97110; 97161; 64999; 64448; 76942; 88300; 73560; 27447; C1713; C1776; J2250; J1100; J2710; J0690 ×2; J2405; J3010; J2795 ×2; J0330; J2704; J1170; J2001

== ENCOUNTER 2022-09-10 01:40 | Inpatient (IN) | payer MEDICARE, OTHER ==
[2022-09-10 01:53] VITALS: TEMP 98
[2022-09-10] MEDS ORDERED: DILTIAZEM 5 MG/ML 5 ML VIAL IVP STA (02:15)
[2022-09-10] MEDS ORDERED: SODIUM CHLORIDE 0.9% 500 ML 500 ML IV ONE (02:16)
--- NOTE | 2022-09-10 02:18 | ED ---
Arrhythmia/Palpitations HPI - General Chief Complaint: Arrhythmia/Palpitations Stated Complaint: AFib Time Seen by Provider: 09/10/22 01:50 Source: patient, RN notes reviewed Mode of arrival: wheelchair Limitations: no limitations - History of Present Illness Initial Comments: This is a pleasant 67-year-old female with a history of hypertension and history of cardiac arrhythmia. Although the patient states she has never been officially diagnosed with atrial fibrillation. She then adds that she used to be on flecainide and Eliquis. She is previously been seen and treated by Dr. Orozco. Patient states she woke up at about 11:30 with palpitations and racing heartbeat. She is denying any pain. No diaphoresis. No nausea. Patient states she has been burping a lot however. No pain. No headache, no fever or chills, no changes in vision or hearing, no sore throat or difficulty with speech, no neck pain, no chest pain or shortness of breath, no abdominal pain, no nausea or vomiting, no changes in urination or bowel movements, no numbness or tingling, no extremity pain, no skin rashes or lesions. Past medical, surgical, social, and family history reviewed. MD Complaint: rapid heart beat, "heart racing", palpitations - Related Data Home Medications Medication Instructions Recorded Confirmed Acetaminophen Tab [Tylenol] 325 - 650 mg PO DIRECTED PRN 01/16/22 01/16/22 Apixaban [Eliquis] 5 mg PO BID 01/16/22 01/16/22 Cetirizine HCl [Zyrtec] 10 mg PO DAILY PRN 01/16/22 01/16/22 Levothyroxine Sodium [Synthroid] 88 mcg PO DAILY 01/16/22 01/16/22 Allergy Injections 1 dose SQ DIRECTED 01/17/22 01/21/22 Previous Rx's Medication Instructions Recorded HYDROcodone/APAP 7.5-325MG [[place] 1 - 2 tab PO Q6H PRN #32 tab 01/21/22 7.5-325] Ondansetron Odt [Zofran Odt] 1 tab PO Q8HR PRN #10 tab 01/21/22 Sennosides [Senokot] 2 tab PO DAILY PRN #60 tablet 01/21/22 Allergies Allergy/AdvReac Type Severity Reaction Status Date / Time metformin AdvReac Unknown Diarrhea Verified 09/10/22 01:43 Review of Systems ROS Statement: Those systems with pertinent positive or pertinent negative responses have been documented in the HPI. ROS Other: All systems not noted in ROS Statement are negative. Past Medical History Past Medical History: Asthma, Diabetes Mellitus, GERD/Reflux, Osteoarthritis (OA), Thyroid Disorder Additional Past Medical History / Comment(s): "PRE-DIABETIC"-WATCHING DIET., STATES HX HEART PALPITATIONS., OCCASIONAL GERD, HYPOTHYROID, ENVIRONMENTAL ALLERGIES WITH INJECTIONS TWICE A MONTH., STATES ELEVATED CREATININE THAT WAS RESOLVED WITH STOPPING VITAMINS. History of Any Multi-Drug Resistant Organisms: None Reported Past Surgical History: Hysterectomy, Tonsillectomy Additional Past Surgical History / Comment(s): carpal tunnel, eye brow lift, bunionectomy Past Anesthesia/Blood Transfusion Reactions: Previous Problems w/ Anesthesia, Motion Sickness, Postoperative Nausea & Vomiting (PONV) Past Psychological History: No Psychological Hx Reported Smoking Status: Former smoker Past Alcohol Use History: None Reported Past Drug Use History: None Reported - Past Family History Mother Family Medical History: Cancer Additional Family Medical History / Comment(s): mass in neck Sister(s) Family Medical History: Cancer Additional Family Medical History / Comment(s): lung cancer Brother(s) Family Medical History: Cancer Additional Family Medical History / Comment(s): lung cancer General Exam Limitations: no limitations General appearance: alert, in no apparent distress Head exam: Present: atraumatic, normocephalic, normal inspection Eye exam: Present: normal appearance, PERRL, EOMI. Absent: scleral icterus, conjunctival injection, periorbital swelling ENT exam: Present: normal exam, normal oropharynx, mucous membranes dry, mucous membranes moist, normal external ear exam Neck exam: Present: normal inspection. Absent: tenderness, meningismus, lymphadenopathy Respiratory exam: Present: normal lung sounds bilaterally. Absent: respiratory distress, wheezes, rales, rhonchi, stridor, chest wall tenderness, accessory muscle use Cardiovascular Exam: Present: tachycardia, irregular rhythm, normal heart sounds. Absent: systolic murmur, diastolic murmur, rubs, gallop, clicks GI/Abdominal exam: Present: soft, normal bowel sounds. Absent: distended, tenderness, guarding, rebound, rigid Extremities exam: Present: normal inspection, full ROM, normal capillary refill. Absent: tenderness, pedal edema, joint swelling, calf tenderness Back exam: Present: normal inspection Neurological exam: Present: alert, oriented X3, CN II-XII intact Psychiatric exam: Present: normal affect, normal mood Skin exam: Present: warm, dry, intact, normal color. Absent: rash Course Vital Signs 09/10/22 09/10/22 09/10/22 01:44 01:48 03:10 Temperature 97.5 F L 98 F Pulse Rate 80 151 H Respiratory 16 16 Rate Blood Pressure 116/73 119/92 90/56 O2 Sat by Pulse 97 99 Oximetry 09/10/22 09/10/22 09/10/22 03:20 03:29 03:45 Temperature Pulse Rate 128 H 112 H 111 H Respiratory 16 16 16 Rate Blood Pressure 88/46 96/60 99/60 O2 Sat by Pulse 99 99 99 Oximetry - Reevaluation(s) Reevaluation #1: 09/10/22 03:13 Patient was reevaluated, despite having systolic blood pressure of 86 she is asymptomatic. Patient has no chest pain. Current heart rate is fluctuating between about 114 and 126 when I'm in the room. Patient will be admitted for atrial fibrillation with RVR. Heparin protocol will be initiated. Reevaluation #2: 09/10/22 03:49 Patient now normotensive with a systolic blood pressure of 96. Heart rate is normalizing with current heart rate being 106. - Consultations Consultation #1: Case discussed in detail with the on-call APC, Jose Quan from [facility] group. Patient admitted to that group for further evaluation and treatment. Cardiology consultation placed. EKG Findings - EKG Comments: EKG Findings:: EKG independently interpreted by me and reveal ED attending physician at 1:53 AM reveals atrial fibrillation with rapid ventricular response. Rate of 156. QRS duration 90 ms, QTC 361 ms. Normal axis. Some nonspecific ST wave changes no evidence of significant ST elevation or depression. Normal QRS morphology otherwise. When compared to the previous study from December 2021 atrial fibrillation now present Medical Decision Making - Medical Decision Making Did you review nursing and triage notes? @ Reviewed and concur Were old charts reviewed? @ Previous hospital chart reviewed, previous EKG reviewed Differential Diagnosis? @ MDM differential: Palpitations, atrial fibrillation, SVT, other cardiac arrhythmia, tachycardia, does not appear to be consistent with ischemic heart disease. X-rays interpreted by me (1pt min.)? @ Chest x-ray independently interpreted by me reveals no evidence of acute pathology. No effusion. No cardiomegaly. No infiltrate. No osseous lesion. No pneumothorax. Awaiting radiology interpretation. What meds were considered but not given? Why? @ Did consider beta ryan instead of calcium channel ryan. However after discussion with ED attending physician. Diltiazem was chosen. Did you discuss the management of the patient with other professionals? @ The attending physician, APC from [facility] Did you reconcile home meds? @ Yes Was smoking cessation discussed for >3mins.? @ Not applicable What co-morbidities impacted this encounter? (DM, HTN, Smoking, COPD, CAD, Cancer, CVA, Hep., AIDS, mental health diagnosis, sleep apnea, morbid obesity)? @ History of hypertension. History of previous palpitations and cardiac arrhythmia to include possible atrial fibrillation based on the patient's previous medications. Was patient admitted / discharged? @ Patient was admitted for atrial fibrillation and rapid ventricular response. Patient was essentially asymptomatic at the time of admission. Patient did have some hypotension after initial diltiazem treatment. Fluid bolus was given. Patient did not appear to have any ischemic heart disease. Laboratory values were essentially unremarkable. Troponin was negative. Drug Therapy requiring intensive monitoring for toxicity (Heparin, Nitro, Insulin, Cardizem)? @ Patient on a Cardizem drip Were any procedures done? @ [none] Diagnosis/symptom? @ Atrial fibrillation with RVR Acute, or Chronic, or Acute on Chronic? @ Acute with possible previous instance Poses a threat to life or bodily function? @ Yes - Lab Data Result diagrams: 09/10/22 02:00 09/10/22 02:00 Lab Results 09/10/22 09/10/22 09/10/22 Range/Units 02:00 02:00 02:00 WBC 8.8 (3.8-10.6) k/uL RBC 5.02 (3.80-5.40) m/uL Hgb 14.4 (11.4-16.0) gm/dL Hct 44.4 (34.0-46.0) % MCV 88.3 (80.0-100.0) fL MCH 28.7 (25.0-35.0) pg MCHC 32.5 (31.0-37.0) g/dL RDW 13.1 (11.5-15.5) % Plt Count 397 (150-450) k/uL MPV 7.4 Neutrophils % 58 % Lymphocytes % 31 % Monocytes % 7 % Eosinophils % 2 % Basophils % 1 % Neutrophils # 5.1 (1.3-7.7) k/uL Lymphocytes # 2.7 (1.0-4.8) k/uL Monocytes # 0.6 (0-1.0) k/uL Eosinophils # 0.2 (0-0.7) k/uL Basophils # 0.1 (0-0.2) k/uL PT 9.3 (9.0-12.0) sec INR 0.9 (<1.2) APTT 24.8 (22.0-30.0) sec Sodium 140 (137-145) mmol/L Potassium 4.4 (3.5-5.1) mmol/L Chloride 107 (98-107) mmol/L Carbon Dioxide 25 (22-30) mmol/L Anion Gap 8 mmol/L BUN 21 H (7-17) mg/dL Creatinine 0.70 (0.52-1.04) mg/dL Est GFR (CKD-EPI)AfAm >90 (>60 ml/min/1.73 sqM) Est GFR (CKD-EPI)NonAf >90 (>60 ml/min/1.73 sqM) Glucose 136 H (74-99) mg/dL Calcium 9.7 (8.4-10.2) mg/dL Magnesium 2.1 (1.6-2.3) mg/dL Total Bilirubin 0.4 (0.2-1.3) mg/dL AST 24 (14-36) U/L ALT 20 (4-34) U/L Alkaline Phosphatase 82 (38-126) U/L Troponin I (0.000-0.034) ng/mL Total Protein 6.6 (6.3-8.2) g/dL Albumin 4.0 (3.5-5.0) g/dL TSH 3.710 (0.465-4.680) mIU/L 09/10/22 Range/Units 02:00 WBC (3.8-10.6) k/uL RBC (3.80-5.40) m/uL Hgb (11.4-16.0) gm/dL Hct (34.0-46.0) % MCV (80.0-100.0) fL MCH (25.0-35.0) pg MCHC (31.0-37.0) g/dL RDW (11.5-15.5) % Plt Count (150-450) k/uL MPV Neutrophils % % Lymphocytes % % Monocytes % % Eosinophils % % Basophils % % Neutrophils # (1.3-7.7) k/uL Lymphocytes # (1.0-4.8) k/uL Monocytes # (0-1.0) k/uL Eosinophils # (0-0.7) k/uL Basophils # (0-0.2) k/uL PT (9.0-12.0) sec INR (<1.2) APTT (22.0-30.0) sec Sodium (137-145) mmol/L Potassium (3.5-5.1) mmol/L Chloride (98-107) mmol/L Carbon Dioxide (22-30) mmol/L Anion Gap mmol/L BUN (7-17) mg/dL Creatinine (0.52-1.04) mg/dL Est GFR (CKD-EPI)AfAm (>60 ml/min/1.73 sqM) Est GFR (CKD-EPI)NonAf (>60 ml/min/1.73 sqM) Glucose (74-99) mg/dL Calcium (8.4-10.2) mg/dL Magnesium (1.6-2.3) mg/dL Total Bilirubin (0.2-1.3) mg/dL AST (14-36) U/L ALT (4-34) U/L Alkaline Phosphatase (38-126) U/L Troponin I <0.012 (0.000-0.034) ng/mL Total Protein (6.3-8.2) g/dL Albumin (3.5-5.0) g/dL TSH (0.465-4.680) mIU/L Disposition Clinical Impression: Atrial fibrillation with rapid ventricular response Disposition: ADMITTED IP TO THIS HOSP Condition: Fair Is patient prescribed a controlled substance at d/c from ED?: No Time of Disposition: 03:19 Decision to Admit Reason: Admit from EC Decision Time: 03:19
[2022-09-10 02:25] LABS: Basophils # (A) 0.1 k/uL (0-0.2); Basophils % (A) 1 %; Eosinophils # (A) 0.2 k/uL (0-0.7); Eosinophils % (A) 2 %; HCT 44.4 % (34.0-46.0); HGB 14.4 gm/dL (11.4-16.0); Lymphocytes # (A) 2.7 k/uL (1.0-4.8); Lymphocytes % (A) 31 %; MCH 28.7 pg (25.0-35.0); MCHC 32.5 g/dL (31.0-37.0); MCV 88.3 fL (80.0-100.0); Mean Platelet Volume 7.4; Monocytes # (A) 0.6 k/uL (0-1.0); Monocytes % (A) 7 %; Neutrophils # (A) 5.1 k/uL (1.3-7.7); Neutrophils % (A) 58 %; Platelet Count 397 k/uL (150-450); RBC 5.02 m/uL (3.80-5.40); RDW 13.1 % (11.5-15.5); WBC 8.8 k/uL (3.8-10.6)
[2022-09-10] MEDS ORDERED: DILTIAZEM 125 MG in SODIUM CHLORIDE 0.9% 100 ML IV SCH (02:30)
[2022-09-10 02:43] LABS: ALT 20 U/L (4-34); AST 24 U/L (14-36); African American GFR (CKD) >90 (>60 ml/min/1.73 sqM); Alkaline Phosphatase 82 U/L (38-126); Anion Gap 8 mmol/L; Blood Urea Nitrogen 21 mg/dL (7-17); Calcium 9.7 mg/dL (8.4-10.2); Carbon Dioxide 25 mmol/L (22-30); Chloride 107 mmol/L (98-107); Glucose 136 mg/dL (74-99); Magnesium 2.1 mg/dL (1.6-2.3); Non-African American GFR(CKD) >90 (>60 ml/min/1.73 sqM); Potassium 4.4 mmol/L (3.5-5.1); Sodium 140 mmol/L (137-145); Total Bilirubin 0.4 mg/dL (0.2-1.3); Total Protein 6.6 g/dL (6.3-8.2)
[2022-09-10 02:46] LABS: INR 0.9 (<1.2); Partial Thromboplastin Time 24.8 sec (22.0-30.0); Prothrombin Time 9.3 sec (9.0-12.0)
--- NOTE | 2022-09-10 02:51 | XR ---
PageEXAM: XR Chest, 1 View CLINICAL HISTORY: ITS.REASON XR Reason: dysrhythmia TECHNIQUE: Frontal view of the chest. COMPARISON: No relevant prior studies available. FINDINGS: Lungs: No consolidation or mass. Pleural space: No acute findings Heart: No cardiomegaly. Bones/joints: No acute findings. IMPRESSION: No acute cardiopulmonary process.
[2022-09-10] MEDS ORDERED: SODIUM CHLORIDE 0.9% 1,000 ML IV ONE (03:10)
[2022-09-10] MEDS ORDERED: NALOXONE 0.4 MG/ML 1 ML VIAL IV PRN (03:14)
[2022-09-10] MEDS ORDERED: HEPARIN SODIUM 1,000 UN/ML (10ML VL) IV ONE (03:17)
[2022-09-10] MEDS ORDERED: HEPARIN SODIUM 1,000 UN/ML (10ML VL) IV PRN (03:17)
[2022-09-10] MEDS ORDERED: HEPARIN SOD,PORK IN 0.45% NACL 25,000 UNIT in 0.45% NACL 1 250ML.BAG IV SCH (03:30)
[2022-09-10 10:20] VITALS: RESP 18
[2022-09-10] MEDS ORDERED: METOPROLOL TARTRATE 25 MG TAB PO SCH (10:45)
--- NOTE | 2022-09-10 11:10 | P.HPIM ---
History of Present Illness Patient was a 67-year-old female with no other significant past medical history except for hypothyroidism on levothyroxine with normal TSH, came in after her watch show tachycardia found to be in atrial fibrillation patient at one point of time was on eliquis for cardiac arrhythmia which was subsequently discontinued. Patient carotid sinus rhythm patient is wasn't and Cardizem which will risk and urine patient was started on low-dose metoprolol and the patient chads score is 1 for her age and female sex. Patient is symptomatic patient doesn't have any dehydration, infection of sepsis. All the labs are within normal limits. REVIEW OF SYSTEMS: CONSTITUTIONAL: No fever, no malaise, no fatigue. HEENT: No recent visual problems or hearing problems. Denied any sore throat. CARDIOVASCULAR: No chest pain, orthopnea, PND, no palpitations, no syncope. PULMONARY: No shortness of breath, no cough, no hemoptysis. GASTROINTESTINAL: No diarrhea, no nausea, no vomiting, no abdominal pain. NEUROLOGICAL: No headaches, no weakness, no numbness. HEMATOLOGICAL: Denies any bleeding or petechiae. GENITOURINARY: Denies any burning micturition, frequency, or urgency. MUSCULOSKELETAL/RHEUMATOLOGICAL: Denies any joint pain, swelling, or any muscle pain. ENDOCRINE: Denies any polyuria or polydipsia. The rest of the 14-point review of systems is negative. PHYSICAL EXAMINATION: GENERAL: The patient is alert and oriented x3, not in any acute distress. Well developed, well nourished. HEENT: Pupils are round and equally reacting to light. EOMI. No scleral icterus. No conjunctival pallor. Normocephalic, atraumatic. No pharyngeal erythema. No thyromegaly. CARDIOVASCULAR: S1 and S2 present. No murmurs, rubs, or gallops. PULMONARY: Chest is clear to auscultation, no wheezing or crackles. ABDOMEN: Soft, nontender, nondistended, normoactive bowel sounds. No palpable organomegaly. MUSCULOSKELETAL: No joint swelling or deformity. EXTREMITIES: No cyanosis, clubbing, or pedal edema. NEUROLOGICAL: Gross neurological examination did not reveal any focal deficits. SKIN: No rashes. Assessment and plan -New onset atrial fibrillation with rapid ventricular rate presently sinus rhythm rate improved at this can you Cardizem, echocardiogram will be obtained cardiology will evaluate the patient if cleared by cardiology and if her cardiac echocardiogram is within normal limits patient will be discharged on possibly anticoagulation and metoprolol. -Hypothyroidism with normal TSH DVT prophylaxis: On anticoagulation Past Medical History Past Medical History: Asthma, Diabetes Mellitus, GERD/Reflux, Osteoarthritis (OA), Thyroid Disorder Additional Past Medical History / Comment(s): "PRE-DIABETIC"-WATCHING DIET., STATES HX HEART PALPITATIONS., OCCASIONAL GERD, HYPOTHYROID, ENVIRONMENTAL ALLERGIES WITH INJECTIONS TWICE A MONTH., STATES ELEVATED CREATININE THAT WAS RESOLVED WITH STOPPING VITAMINS. History of Any Multi-Drug Resistant Organisms: None Reported Past Surgical History: Hysterectomy, Tonsillectomy Additional Past Surgical History / Comment(s): carpal tunnel, eye brow lift, bunionectomy Past Anesthesia/Blood Transfusion Reactions: Previous Problems w/ Anesthesia, Motion Sickness, Postoperative Nausea & Vomiting (PONV) Past Psychological History: No Psychological Hx Reported Smoking Status: Former smoker Past Alcohol Use History: None Reported Past Drug Use History: None Reported - Past Family History Mother Family Medical History: Cancer Additional Family Medical History / Comment(s): mass in neck Sister(s) Family Medical History: Cancer Additional Family Medical History / Comment(s): lung cancer Brother(s) Family Medical History: Cancer Additional Family Medical History / Comment(s): lung cancer Medications and Allergies Home Medications Medication Instructions Recorded Confirmed Type Levothyroxine Sodium [Synthroid] 88 mcg PO DAILY 01/16/22 09/10/22 History Apixaban [Eliquis] 5 mg PO BID #60 tab 09/10/22 Rx Ascorbic Acid [Vitamin C] 1,000 mg PO DAILY 09/10/22 09/10/22 History Metoprolol Tartrate [Lopressor] 25 mg PO BID #60 tab 09/10/22 Rx Quercetin(Unknown) 1 tab PO DAILY 09/10/22 09/10/22 History Vitamin D3(Unknown) 1 tab PO DAILY 09/10/22 09/10/22 History Allergies Allergy/AdvReac Type Severity Reaction Status Date / Time metformin AdvReac Unknown Diarrhea Verified 09/10/22 07:47 Physical Exam Vitals: Vital Signs Temp Pulse Resp BP Pulse Ox 09/10/22 09:03 75 18 96/52 98 09/10/22 07:54 88 14 97/67 95 09/10/22 07:00 128 H 16 105/68 100 09/10/22 06:00 114 H 16 95/51 99 09/10/22 05:22 122 H 16 114/63 100 09/10/22 05:01 118 H 16 95/79 100 09/10/22 04:18 112 H 16 96/50 09/10/22 04:00 105 H 16 99 09/10/22 03:45 111 H 16 99/60 99 09/10/22 03:29 112 H 16 96/60 99 09/10/22 03:20 128 H 16 88/46 99 09/10/22 03:10 90/56 09/10/22 01:48 98 F 151 H 16 119/92 99 09/10/22 01:44 97.5 F L 80 16 116/73 97 Intake and Output 09/09/22 09/10/22 09/10/22 22:59 06:59 14:59 Intake Total 5.333 Balance 5.333 Intake: Intake, IV Titration 5.333 Amount Diltiazem 125 mg In 5.333 Sodium Chloride 0.9% 100 ml @ 10 MG/HR 10 mls/hr IV .[id number] [facility] Rx#: [id number] Other: Weight 67.132 kg Results CBC & Chem 7: 09/10/22 02:00 09/10/22 02:00 Labs: Abnormal Lab Results - Last 24 Hours (Table) 09/10/22 Range/Units 02:00 BUN 21 H (7-17) mg/dL Glucose 136 H (74-99) mg/dL
--- NOTE | 2022-09-10 11:11 | P.DS ---
Providers Date of admission: 09/10/22 03:16 Attending physician: Yosi Baer Consults: 09/10/22 03:14 Consult Physician Urgent Consulting Provider: Juaquin Orozco Consult Reason/Comments: Atrial fibrillation with RVR Do you want consulting provider notified?: Yes, Notify in am Primary care physician: Dottie Sosa [facility] Course: Refer to my history of present illness for further details Patient Condition at Discharge: Fair Plan - Discharge Summary New Discharge Prescriptions: New Apixaban [Eliquis] 5 mg PO BID #60 tab Metoprolol Tartrate [Lopressor] 25 mg PO BID #60 tab Continue Levothyroxine Sodium [Synthroid] 88 mcg PO DAILY Quercetin(Unknown) 1 tab PO DAILY Vitamin D3(Unknown) 1 tab PO DAILY Ascorbic Acid [Vitamin C] 1,000 mg PO DAILY Discontinued Zinc Gluconate [Zinc] 50 mg PO DAILY Discharge Medication List Levothyroxine Sodium [Synthroid] 88 mcg PO DAILY 01/16/22 [History] Apixaban [Eliquis] 5 mg PO BID #60 tab 09/10/22 [Rx] Ascorbic Acid [Vitamin C] 1,000 mg PO DAILY 09/10/22 [History] Metoprolol Tartrate [Lopressor] 25 mg PO BID #60 tab 09/10/22 [Rx] Quercetin(Unknown) 1 tab PO DAILY 09/10/22 [History] Vitamin D3(Unknown) 1 tab PO DAILY 09/10/22 [History] Follow up Appointment(s)/Referral(s): Juaquin Orozco MD [STAFF PHYSICIAN] - 1 Week Dottie Sosa MD [Primary Care Provider] - 3 Days Discharge Disposition: HOME SELF-CARE
[2022-09-10] MEDS ORDERED: APIXABAN 5 MG TAB PO SCH (11:15)
[2022-09-10 14:21] VITALS: BP 121/101; PULSE 75
== END 2022-09-10 14:30 | disposition left against medical advice (07) | DRG 310 ==
LOC: EC 01:40 → 3SCARD 03:16
PROVIDERS: ADMIT Internal Medicine; ATTEND Internal Medicine
DX: I48.91 Unspecified atrial fibrillation (principal); J45.909 Unspecified asthma, uncomplicated; K21.9 Gastro-esophageal reflux disease without esophagitis; E03.9 Hypothyroidism, unspecified; E11.9 Type 2 diabetes mellitus without complications; I25.10 Atherosclerotic heart disease of native coronary artery without angina pectoris; Z53.21 Procedure and treatment not carried out due to patient leaving prior to being seen by health care provider; J44.9 Chronic obstructive pulmonary disease, unspecified; J30.89 Other allergic rhinitis; F17.210 Nicotine dependence, cigarettes, uncomplicated; Z71.6 Tobacco abuse counseling; I10 Essential (primary) hypertension; Z79.01 Long term (current) use of anticoagulants; Z79.890 Hormone replacement therapy; Z79.899 Other long term (current) drug therapy; Z90.710 Acquired absence of both cervix and uterus; Z88.8 Allergy status to other drugs, medicaments and biological substances
CPT/HCPCS: 36415; 71045; 80053; 83735; 84443; 84484; 85025; 85610; 85730; 93005; 96361; 96365; 96366; 96368; 99285

== ENCOUNTER → 2022-12-29 | Outpatient (CLI) | payer MEDICARE, OTHER ==
--- NOTE | 2022-12-29 11:37 | US ---
EXAMINATION TYPE: US abdomen complete DATE OF EXAM: 12/29/2022 COMPARISON: CT CLINICAL HISTORY: R10.9 ABD PAIN. Pt states ABD pain, more at right flank, pt also states history of kidney stones TECHNIQUE: Multiple sonographic images of the abdomen are obtained. FINDINGS: EXAM MEASUREMENTS: Liver Length: 16.7 cm Gallbladder Wall: 0.2 cm CBD: 0.4 cm Spleen: 8.6 cm Right Kidney: 11.7 x 4.5 x 4.6 cm Left Kidney: 10.7 x 5.3 x 5.0 cm DIRECTOR OF SLEEP NOTES: Pancreas: wnl, tail obscured by overlying bowel gas Liver: Echogenic, otherwise appeared wnl Gallbladder: wnl Evidence for sonographic Centeno's sign: No CBD: wnl Spleen: wnl Right Kidney: No evidence of hydro, possible 5mm calculi mid Left Kidney: No evidence of hydro, possible 6mm calculi mid/lateral Upper IVC: wnl Abd Aorta: wnl Bladder: wnl, bilateral jets visualized Results called to Jacque at 's office at time of exam The intrahepatic portion of the IVC and proximal abdominal aorta are within normal limits. There is no evidence of cholelithiasis. Common bile duct is unremarkable. The visualized portions of the solorzano creas are homogenous. The spleen is unremarkable. Kidneys are symmetric and free of hydronephrosis. No renal lesions are seen. IMPRESSION: 1. Nonobstructing nephrolithiasis. 2. Echogenic liver may reflect fatty hepatic infiltration.
[2022-12-29 16:53] LABS: African American GFR (CKD) 89.7 (60.0-200.0); BUN/Creat Ratio 19.63 Ratio (12.00-20.00); Blood Urea Nitrogen 15.7 mg/dL (9.0-27.0); C Reactive Protein <0.30 mg/dL (0.00-0.80); Calcium 9.7 mg/dL (8.7-10.3); Chloride 104 mmol/L (96-109); Glucose 89 mg/dL (70-110); Non-African American GFR(CKD) 77.4 (60.0-200.0); Potassium 4.7 mmol/L (3.5-5.5); Sodium 141 mmol/L (135-145)
[2022-12-29 17:01] LABS: HCT 43.2 % (37.2-46.3); HGB 13.7 g/dL (12.0-15.0); MCH 28.7 pg (27.0-32.0); MCHC 31.7 g/dL (32.0-37.0); MCV 90.4 fL (80.0-97.0); Mean Platelet Volume 9.8 fL (9.5-12.2); NRBC Per 100 WBC 0 /100 WBCS (0.0-0.0); Platelet Count 331 X 10*3/uL (140-440); RBC 4.78 X 10*6/uL (4.10-5.20); RDW 12.9 % (11.5-14.5); WBC 6.91 X 10*3/uL (4.50-10.00)
[2022-12-29 17:51] LABS: Erythrocyte Sedimentation Rate 25 mm/Hr (0-30)
== END | disposition home or self-care (01) ==
LOC: RADUSWWP 10:25
PROVIDERS: ATTEND Family Medicine
DX: N20.0 Calculus of kidney (principal); K76.89 Other specified diseases of liver
CPT/HCPCS: 76700; 76857; 80048; 85027; 85652; 86140